=== PATIENT | male | born 1950 | race Caucasian/White ===

== ENCOUNTER 2018-01-05 20:01 | Emergency (ER) | payer MEDICARE ==
[2018-01-05 20:10] VITALS: BP 133/73
[2018-01-05] MEDS ORDERED: Ibuprofen TAB* 600 MG PO ONE (20:34)
--- NOTE | 2018-01-05 20:51 | UC ---
Respiratory Complaint HPI - HPI Summary HPI Summary: 1 WEEK OF SORE THROAT. 3 DAYS AGO DEVELOPED A PERSISTENT COUGH. TODAY DEVELOPED FEVER TMAX 102. MILD HEADACHE. NO NAUSEA VOMITING. NO SOB, CP, DIZZINESS, N/V/D. - History of Current Complaint Chief Complaint: UCGeneralIllness Stated Complaint: FEVER Time Seen by Provider: 01/05/18 20:14 Hx Obtained From: Patient Onset/Duration: Gradual Onset, Lasting Days, Still Present Timing: Constant Severity Initially: Moderate Severity Currently: Moderate Pain Intensity: 2 Pain Scale Used: 0-10 Numeric Character: Cough: Nonproductive Aggravating Factors: Nothing Alleviating Factors: Nothing Associated Signs And Symptoms: Positive: Fever, Chills. Negative: Dyspnea, Wheezing - Allergies/Home Medications Allergies/Adverse Reactions: Allergies Allergy/AdvReac Type Severity Reaction Status Date / Time No Known Allergies Allergy Verified 01/05/18 20:10 Home Medications: Home Medications Insulin Lispro [Humalog] 01/05/18 [History] PMH/Surg Hx/FS Hx/Imm Hx Endocrine History: Diabetes - Surgical History Surgical History: None - Family History Known Family History: Positive: Hypertension - Social History Alcohol Use: Occasionally Substance Use Type: None Smoking Status (MU): Never Smoked Tobacco Review of Systems Constitutional: Fever, Chills, Fatigue ENT: Sore Throat Respiratory: Cough Cardiovascular: Negative Gastrointestinal: Negative Neurological: Headache All Other Systems Reviewed And Are Negative: Yes Physical Exam Triage Information Reviewed: Yes Appearance: No Pain Distress, Well-Nourished, Ill-Appearing - mild Vital Signs: Initial Vital Signs Temp 101.5 F 01/05/18 20:04 Pulse 103 01/05/18 20:04 Resp 18 01/05/18 20:04 BP 133/73 01/05/18 20:04 Pulse Ox 96 01/05/18 20:04 Eyes: Positive: Conjunctiva Clear ENT: Positive: Hearing grossly normal, Pharyngeal erythema, TMs normal Neck: Positive: Supple, Nontender, No Lymphadenopathy Respiratory Exam: Normal Cardiovascular: Positive: Tachycardia Abdomen Description: Positive: Soft Musculoskeletal: Positive: No Edema Neurological: Positive: Alert Psychological: Positive: Age Appropriate Behavior Skin: Negative: rashes UC Diagnostic Evaluation - Laboratory O2 Sat by Pulse Oximetry: 96 Diagnostic Studies Comment: STREP NEG - Radiology Xray Interpretation: Positive (See Comments) - RLL PNA Radiology Interpretation Completed By: ED Physician Respiratory Course/Dx - Differential Dx/Diagnosis Provider Diagnoses: RLL PNA Discharge - Sign-Out/Discharge Documenting (check all that apply): Patient Departure - Discharge Plan Condition: Stable Disposition: HOME Prescriptions: Benzonatate CAP* [Tessalon CAP*] 1 - 2 cap PO TID PRN #30 cap PRN Reason: Cough Doxycycline Monohydrate 1 cap PO BID #18 cap Patient Education Materials: Pneumonia (ED) Referrals: Alan Murray MD [Primary Care Provider] - If Needed () Additional Instructions: X-RAY SHOWS RIGHT LOWER LOBE PNEUMONIA. TAKE THE DOXYCYCLINE TWICE DAILY FOR THE FULL 10 DAYS. COUGH MEDICINE IF NEEDED. GO TO THE ED WITHOUT FAIL IF YOU DEVELOP SHORTNESS OF BREATH, CHEST PAIN, WORSENING FEVER, DIZZINESS, NAUSEA OR ANY OTHER CONCERNING SYMPTOMS. FOLLOW-UP WITH YOUR PCP IN 4-6 WEEKS FOR REEVALUATION AND FOR REPEAT CHEST X-RAY TO ENSURE RESOLUTION OF THE PNEUMONIA. BE SEEN SOONER IF YOU ARE NOT IMPROVING EXPECTED. - Billing Disposition and Condition Condition: STABLE Disposition: Home
[2018-01-05] MEDS ORDERED: DOXYcycline CAP(*) 100 MG PO ONE (21:01)
[2018-01-05] MEDS: DOXYcycline CAP(*) 100 MG PO ONE ×2 (21:08→21:10)
--- NOTE | 2018-01-06 07:56 | RAD ---
HISTORY: COUGH, FEVER COMPARISONS: March 24, 2010 VIEWS: 4: Frontal dual-energy and lateral views of the chest. FINDINGS: CARDIOMEDIASTINAL SILHOUETTE: The cardiomediastinal silhouette is normal. TAMMY: The tammy are normal. PLEURA: The costophrenic angles are sharp. No pleural abnormalities are noted. LUNG PARENCHYMA: There is confluent alveolar opacification of the right lower lung near the costophrenic angle. ABDOMEN: The upper abdomen is clear. There is no subphrenic gas. BONES AND SOFT TISSUES: No bone or soft tissue abnormalities are noted. OTHER: None. IMPRESSION: RIGHT LOWER LUNG CONSOLIDATION. RECOMMEND FOLLOW-UP UNTIL RESOLUTION TO EXCLUDE UNDERLYING PULMONARY PARENCHYMAL PATHOLOGY. R0
== END 2018-01-05 21:19 | disposition home or self-care (01) ==
LOC: UCEAST 20:01
DX: J18.9 Pneumonia, unspecified organism (principal); J02.9 Acute pharyngitis, unspecified; E11.9 Type 2 diabetes mellitus without complications
CPT/HCPCS: 71046; 87651; 99213; A9270-GY; G0463